=== PATIENT | male | born 1980 | race Asian ===

== ENCOUNTER 2024-06-23 08:35 | Emergency (ER) | payer MEDICAID ==
[~2024-06-23] VITALS: Ht 160 cm; Wt 81.0 kg
[~2024-06-23 08:35] MED LIST: ACET-2635
[2024-06-23] MEDS ORDERED: 0.9% SODIUM CHLORIDE 10 ML SYRINGE IVP PRN (09:00)
[2024-06-23] MEDS: SODIUM CHLORIDE 0.9% 2,450 ML IV ONE (09:03)
[2024-06-23 09:05] LABS: COVID AG,FIA SOURCE NASAL SWAB
[2024-06-23 09:24] LABS: BASOPHILS % (AUTO) 0.4 % (0.0-2.0); EOSINOPHILS % (AUTO) 0.2 % (1.0-6.0); HEMATOCRIT 34.8 % (41-53); HEMOGLOBIN 11.7 g/dL (13.5-17.5); LYMPHOCYTES # (AUTO) 0.5 K/uL (1.0-4.8); LYMPHOCYTES % (AUTO) 11.5 % (22.0-44.0); MEAN CORPUSCULAR HEMOGLOBIN 30.9 pg (26.0-34.0); MEAN CORPUSCULAR HGB CONC 33.8 G/dL (31.0-37.0); MEAN CORPUSCULAR VOLUME 92 fL (80-100); MONOCYTES # (AUTO) 0.5 K/uL (0.1-1.0); MONOCYTES % (AUTO) 10.9 % (2.0-9.0); NEUTROPHILS # (AUTO) 3.6 K/uL (1.8-7.7); PLATELET COUNT (AUTO) 133 K/uL (150-450); RED BLOOD CELL COUNT(AUTO) 3.79 MIL/uL (4.50-5.90); RED CELL DISTRIBUTION WIDTH 12.8 % (11.5-14.5); WHITE BLOOD COUNT (AUTO) 4.6 K/uL (4.5-11.0)
[2024-06-23 09:24] LABS: INFLUENZA TYPE B NEGATIVE FOR TYPE B (NEGATIVE); SARS-COV2 (COVID) ANTIGEN,FIA Negative (Negative)
[2024-06-23 09:25] LABS: INFLUENZA TYPE A POSITIVE FOR TYPE A (NEGATIVE)
[2024-06-23 09:31] LABS: ANION GAP 10 mmol/L (8-16); CALCIUM, TOTAL 7.4 mg/dL (8.8-10.5); CARBON DIOXIDE 24 mmol/L (22-29); CHLORIDE 97 mmol/L (98-107); CREATININE 0.92 mg/dL (0.60-1.30); GLOMERULAR FILTR. RATE CALC > 60 mL/min (>60); GLUCOSE,RANDOM 208 mg/dL (70-110); POTASSIUM 3.2 mmol/L (3.5-5.1); SODIUM SERUM 131 mmol/L (136-145); UREA NITROGEN, BLOOD 9 mg/dL (7-18)
[2024-06-23 09:40] LABS: ALANINE AMINOTRANSFERASE 123 U/L (12-78); ALBUMIN 3.2 g/dL (3.4-5.0); ALKALINE PHOSPHATASE 51 U/L (46-116); ASPARTATE AMINOTRANSFERASE 130 U/L (15-37); BILIRUBIN,TOTAL 0.6 mg/dL (0.1-1.0); TOTAL PROTEIN, SERUM 6.8 g/dL (6.4-8.2); TROPONIN I-HIGH SENSITIVITY 8 ng/L (<76)
[2024-06-23 09:41] LABS: LACTIC ACID 2.2 mmol/L (0.4-2.0)
[2024-06-23 09:52] LABS: APPEARANCE,URINE CLEAR (CLEAR); BILIRUBIN,URINE NEGATIVE (NEGATIVE); COLOR,URINE YELLOW (YELLOW); GLUCOSE, URINE (UA) >=1000 mg/dL (NEGATIVE); KETONES,URINE 40-60 mg/dL (NEGATIVE); LEUKOCYTE ESTERASE ,URINE NEGATIVE (NEGATIVE); NITRATE,URINE NEGATIVE (NEGATIVE); OCCULT BLOOD,URINE LARGE (NEGATIVE); PH,URINE 6.5 (5.0-8.0); PROTEIN,URINE 100-200,SEE CONFIRM mg/dL (NEGATIVE); SPECIFIC GRAVITIY, URINE 1.033 (1.003-1.030); UROBILINOGEN,URINE <=1.0 mg/dL (<=1.0)
[2024-06-23] MEDS ORDERED: SODIUM CHLORIDE 0.9% 100 ML ONE (09:56)
[2024-06-23] MEDS ORDERED: IOHEXOL 350 MG/ML 100 ML VIAL ONE (09:56)
[2024-06-23] MEDS: POTASSIUM CHLORIDE 20 MEQ ER TABLET PO ONE (09:59)
[2024-06-23] MEDS: OSELTAMIVIR PHOSPHATE 75 MG CAPSULE PO ONE (09:59)
[2024-06-23 10:02] LABS: BACTERIA,URINE None Seen /HPF (None Seen); SQUAMOUS EPITHELIAL CELL,UR None Seen /LPF (None Seen); SULFOSALICYLIC ACID,URINE 1+ (Negative); WBC,URINE None Seen /HPF (0-5)
[2024-06-23 10:12] LABS: PROTHROMBIN TIME 11.2 SEC (9.4-11.6)
[2024-06-23 10:13] LABS: D-DIMER 0.21 mg/L FEU (0.00-0.50)
[2024-06-23 11:10] VITALS: BP 113/77; TEMP 99.2
[2024-06-23] MEDS: AZITHROMYCIN 500 MG/NS 250 ML IV ONE (11:14)
[2024-06-23] MEDS: CefTRIAXone 1 GM/DEXTROSE 50 ML IV ONE (11:14)
[2024-06-23] MEDS ORDERED: 0.9% SODIUM CHLORIDE 5 ML NEB SOLUTION NEB ONE (11:16)
[2024-06-23] MEDS: ALBUTEROL SULFATE 2.5 MG/0.5 ML NEB SOLUTION NEB ONE (11:19)
[2024-06-23 11:22] VITALS: PULSE 102; RESP 20; O2SAT 95
[2024-06-23 11:33] VITALS: PULSE 103; RESP 20; O2SAT 100
[2024-06-23] MEDS ORDERED: OSEL75CA45 PO (12:46)
[2024-06-23] MEDS ORDERED: ALBU18HF12 IH (12:46)
== END 2024-06-23 10:45 | disposition left against medical advice (07) ==
LOC: EMS 08:37 → UNDOADMIN 11:33 → EDH 11:33 → UNDODISIN 12:30
DX: R65.20 Severe sepsis without septic shock (principal); J10.1 Influenza due to other identified influenza virus with other respiratory manifestations; R06.02 Shortness of breath; E11.9 Type 2 diabetes mellitus without complications; Z20.822 Contact with and (suspected) exposure to COVID-19
CPT/HCPCS: 80048; 80076; 81001; 82962; 83605; 83880; 84484; 85025; 85379; 85610; 85730; 87040; 87804; 36415; 94640; 71045; 71275; 93005; 96361; 96365; 96368; 99291; 84145; 87426; Q9967; J0456; J0696; J7030; J7050; 81002; G0378; J7613